=== PATIENT | male | born 1995 | race Two or more races ===

== ENCOUNTER 2021-11-03 17:57 | Emergency (ER) | payer OTHER ==
[~2021-11-03] VITALS: Ht 170.2 cm; Wt 70.3 kg
== END 2021-11-03 22:57 | disposition home or self-care (01) ==
LOC: ER 17:57
DX: R51.9 Headache, unspecified (principal); F41.9 Anxiety disorder, unspecified

== ENCOUNTER → 2023-05-10 | Emergency (ER) | payer OTHER ==
[~2023-05-10] VITALS: Ht 170.2 cm; Wt 69.4 kg
== END | disposition left against medical advice (07) ==
LOC: ER 20:43
DX: Z53.21 Procedure and treatment not carried out due to patient leaving prior to being seen by health care provider (principal)